=== PATIENT | male | born 1970 | race Caucasian/White ===

== ENCOUNTER 2022-01-26 23:46 | Inpatient (IN) | payer SELFPAY ==
[2022-01-26 23:50] VITALS: BMI 24.3
[2022-01-26 23:57] VITALS: BP 141/102; PULSE 112; RESP 15; O2SAT 85
[2022-01-27] VITALS (166 sets, daily range): BP systolic 59–141; BP diastolic 42–99; PULSE 0–112; RESP 13–25; TEMP 36.3–36.7; O2SAT 82–98
--- NOTE | 2022-01-27 00:06 | XRR_ITS ---
PROCEDURE INFORMATION: Exam: XR Chest Exam date and time: 01/27/2022 12:00 AM Age: 51 years old Clinical indication: Other: Cpr/code TECHNIQUE: Imaging protocol: Radiologic exam of the chest. Views: 1 view. COMPARISON: No relevant prior studies available. FINDINGS: Tubes, catheters and devices: NG tube is looped in the distal esophagus. The endotracheal tube tip lies just above zayra. Lungs: Extensive ground-glass opacity throughout both lungs. Pleural spaces: Suspect trace left pneumothorax projecting over the lateral costophrenic sulcus. Heart/Mediastinum: Unremarkable. No cardiomegaly. Bones/joints: Suspect left anterior lower rib fractures. Soft tissues: Soft tissue gas in the left chest wall. XR/XR chest 1V portable [id number] IMPRESSION: 1. Probable trace left pneumothorax. 2. NG tube is looped in the distal esophagus and should be repositioned. 3. Endotracheal tube tip lies just above the zayra. 4. Soft tissue gas in the left chest wall. 5. Marked bilateral pulmonary ground-glass opacity. Possible pulmonary edema, hemorrhage, or acute lung injury.
--- NOTE | 2022-01-27 00:06 | ECG_ITS ---
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 Measurements Intervals [place] Rate: 111 P: 160 [place]: 173 QRS: 79 QRSD: 152 T: -60 QT: 394 QTc: 536 Interpretive Statements SINUS TACHYCARDIA MARKED ST ELEVATION, CONSIDER ANTEROLATERAL INJURY [MARKED ST ELEVATION W/O NORMALLY INFLECTED T-WAVE IN V3-V6] ACUTE CO No previous ECG available for comparison Electronically Signed On 01-27-2022 21:35:33 CDT by Ashley Herrera M.D. [email or web address]
[2022-01-27 00:13] LABS: Arterial Blood Gas Hematocrit 39.9 % (42-52); Base Excess ABG -19.2 mmol/L (-2.0-2.0); Blood Gas Allen Test Pos; Blood Gas Sample Site Radial, left; Blood Gas Sample Type Arterial; HCO3 ABG 14.7 mmol/L (22-26); Oxygen Device VENT; PO2 ABG 62.5 mmHg (80.0-100.0)
[2022-01-27 00:35] LABS: Alcohol Level 170 mg/dL (0-10); Blood Urea Nitrogen 8 mg/dL (6-20); Calcium 7.8 mg/dL (8.5-10.5); Carbon Dioxide 15 mmol/L (22-29); Chloride 102 mmol/L (98-107); Creatine Phosphokinase 230 U/L (39-308); Glomerular Filtration Rate 78.2 mL/min (90-130); Glucose 222 mg/dL (65-115); Magnesium 2.7 mg/dL (1.7-2.3); NT Pro B Type Natriuretic Pept 296 pg/mL (0-125); Osmolality Calculated 291 mOsm/kg (285-295); Sodium 138 mmol/L (136-145)
[2022-01-27 00:37] LABS: Anion Gap 24.9 (5-19); Basophils # 0.1 10^3/uL (0.0-0.1); Basophils % 0.5 %; Eosinophils # 0.2 10^3/uL (0.0-0.8); Eosinophils % 1.5 %; Hematocrit 43.7 % (42.0-52.0); Lymphocytes # 7.1 10^3/uL (0.8-4.8); Lymphocytes % 52.1 %; Mean Corpuscular Hemoglobin 32.4 pg (28.0-34.0); Mean Corpuscular Volume 101.2 fl (80-94); Mean Platelet Volume 11.8 fL (7.4-10.4); Monocytes # 0.4 10^3/uL (0.2-0.9); Neutrophils # 4.87 10^3/uL (1.8-7.7); Nucleated Red Blood Cells # 0.1 /100WBC; Nucleated Red Blood Cells % 0.4 %; Platelet Count 84 10^3/cmm (130-400); Potassium 3.9 mmol/L (3.5-5.1); Red Blood Count 4.32 10^6/uL (4.1-5.3); Red Cell Distribution Width 12.8 % (12.1-15.1); Troponin(5th) Baseline 133 ng/L (0-15); White Blood Count 13.6 10^3/uL (4.0-10.0)
[2022-01-27] MEDS: potassium chloride premix 100 ML 50 MEQ IV (00:37)
[2022-01-27] MEDS: EPINEPHrine 2.5 MG in sodium chloride 0.9% 250 ML 60 MG IV ×4 (00:53→13:49)
[2022-01-27 00:55] LABS: Slide Review Slide Review Perform
--- NOTE | 2022-01-27 00:56 | PM.CONSULT ---
Providers/Reason For Consult Consulting Physician/Specialty*: Shawn Mendoza MD/Cardiology Reason for Consult*: Cardiac arrest Requesting Physician: Dr De Oliveira History of Present Illness History of Present Illness Ben Davepnort is a 51 year old male with no known prior cardiac history who was brought by EMS after he had V. fib arrest. According to patient's family he went to bed and woke up around 1030 tonight with complaints of something stuck in the throat. Also had heartburn sensation and asked for Tums. He was not feeling well for the last few days. His girlfriend went out and after about 10 to 15 minutes came back and found him down on the floor unresponsive. She called EMS and started CPR. Per EMS report there was V. fib arrest that converted into PEA later. He was brought to the ER in PEA. Initial CPR duration was about 50 minutes. Cardiology was called and I evaluated patient emergently. Post CPR EKG showed sinus tachycardia with significant conduction delay. ST T wave changes were consistent with postcardiac arrest EKG. Given his age, we initially decided to take him to cardiac Technical Advisor after discussion with the family. However he bradycardia down with concerns of asystole x2 and required CPR again. He had developed pneumothorax as well. His initial pH came back at 6.89. Initial troponin was 133 that trended up to 1187 at 2 hours. He was not on any sedation and had fixed pupils without corneal reflexes. I had a detailed discussion with patient's girlfriend that because of multiple prolonged CPR attempts, it will not be beneficial at this time to take him to cardiac Technical Advisor. They decided to stabilize him and manage him medically. Review of Systems General: Reports: ROS unobtainable due to endotracheal tube Medications/Allergies Home Medications Medication Instructions Recorded Confirmed Last Taken Type No Known Home Medications 01/27/22 01/27/22 Unknown History Allergies Allergy/AdvReac Type Severity Reaction Status Date / Time No Known Allergies Allergy Verified 01/27/22 00:37 Current Medications Generic Name Dose Route Start Last Admin Trade Name Freq PRN Reason Stop Dose Admin Potassium Chloride 100 mls @ 50 mls/hr 01/27/22 00:16 01/27/22 00:37 K-Blair Premix IV 01/27/22 02:15 50 mls/hr ONCE ONE Administration PFSH Acute PFSH: Medical History COVID-19 vaccine administered X2 doses No significant past medical history Surgical History History of tonsillectomy Possibly had tonsillectomy as a child Family History Mother Alcoholism Sister Stroke Denies family history of CAD (coronary artery disease) Social History Smoking and tobacco status: current every day smoker cigarettes [ Other cigarette details: Pack and a half a day] Alcohol intake: current Alcohol intake frequency: few times a week Substance/Drug Use: never Lives independently: Yes Household members: significant other Vitals/I&O/Wt Last Vital Signs Temp 98.0 F 01/27/22 00:42 Pulse 106 H 01/27/22 00:42 Resp 20 H 01/27/22 00:42 BP 107/78 01/27/22 00:42 Pulse Ox 98 01/27/22 00:42 Weight last 48 hrs Weight 160 lb Physical Exam Narrative: GENERAL: Patient is intubated. Unresponsive with fixed pupils HEART: Tachycardic LUNGS: Diminished breath sounds ABDOMEN: Soft CENTRAL NERVOUS SYSTEM: Patient is intubated EXTREMITIES: Cold lower extremities Urinary Catheter Management: Elias: Cath Placed During This Visit: yes Urinary Catheter Date of Insertion: 01/27/22 Urinary Catheter Time of Insertion: 00:16 Data : 01/27/22 07:04 01/27/22 07:04 A&P Assessment and plan (1) Cardiac arrest: Status: Acute (2) Iatrogenic pneumothorax: Status: Acute (3) Acute respiratory failure: Status: Acute Plan Patient has presented with [id number] cardiac arrest. Prolonged CPR attempts with combined total time significantly over an hour. No corneal reflexes seen. Fixed pupils. pH is significantly low. Situation was discussed with patient's girlfriend. She shows understanding and decided not to pursue aggressive measures including taking patient to cardiac Technical Advisor. Medically manage with dual antiplatelet therapy. Can put on cooling protocol Amiodarone gtt IV anticoagulation with heparin Order echocardiogram If patient starts showing signs of neurological recovery, we can consider coronary angiogram with possible percutaneous coronary intervention Thank you for involving us with care of this patient. We will continue to follow. Please call with questions. Consult Attestations Medical Necessity Statement: Care expected to cross 2 midnights. Coding Level of Care Code Acute Director Speech Language for Aurora Guajardo Diagnoses Cardiac arrest I46.9 Iatrogenic pneumothorax J95.811 Acute respiratory failure J96.00
--- NOTE | 2022-01-27 01:04 | XRR_ITS ---
PROCEDURE INFORMATION: Exam: XR Chest Exam date and time: 01/27/2022 1:26 AM Age: 51 years old Clinical indication: Other: Code; Additional info: Repeat post multiple codes, sub cut air TECHNIQUE: Imaging protocol: Radiologic exam of the chest. Views: 1 view. COMPARISON: CR XR chest 1V portable [id number] 01/27/2022 12:00 AM FINDINGS: Tubes, catheters and devices: The endotracheal tube is appropriately positioned in the distal thoracic trachea with the tip above the zayra. NG tube is been repositioned. The tip not imaged. The tube extends beyond the diaphragmatic hiatus. Lungs: There is severe diffuse bilateral pulmonary ground-glass opacity. Pleural spaces: Left apical pneumothorax is now visible. There is 12 mm displacement of the apical pleura from the chest wall. Heart/Mediastinum: Cardiomediastinal contours are unremarkable. Bones/joints: Probable left anterior 4th through 6th rib fractures. Soft tissues: Extensive chest wall gas bilaterally, markedly increased since the prior radiograph. XR/XR chest 1V portable [id number] IMPRESSION: 1. Increased size of left pneumothorax and increased volume of chest wall emphysema. 2. Suspect anterior left rib fractures. 3. Stable severe bilateral pulmonary opacity. 4. Satisfactory endotracheal tube position. 5. NG tube is been repositioned. The tip extends beyond the diaphragmatic hiatus. Tip not imaged.
[2022-01-27 01:06] LABS: INR 1.38 (0.8-1.2)
[2022-01-27 01:08] LABS: Partial Thromboplastin Time 52.6 SECONDS (23.9-36.7)
[2022-01-27 01:14] LABS: Lactate (Lactic Acid level) 12.9 mmol/L (0.5-2.2)
[2022-01-27 01:23] LABS: D Dimer >= 20.00 ug/mIFEU (0-0.59)
--- NOTE | 2022-01-27 02:06 | ECG_ITS ---
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 Measurements Intervals [place] Rate: 100 P: 59 [place]: 175 QRS: -26 QRSD: 104 T: 87 QT: 378 QTc: 488 Interpretive Statements SINUS TACHYCARDIA LOW QRS VOLTAGE [QRS DEFLECTION < 0.5/1.0 mV IN LIMB/CHEST LEADS] INFERIOR MYOCARDIAL INFARCTION , POSSIBLY ACUTE [40+ ms Q WAVE AND/OR ST/T ABNORMALITY IN II/aVF] ANTEROSEPTAL MYOCARDIAL INFARCTION , PROBABLY RECENT [40+ ms Q WAVE IN V1-V4] MARKED ST ELEVATION, CONSIDER LATERAL INJURY [MARKED ST ELEVATION W/O NORMALLY INFLECTED T-WAVE IN I/aVL/V5/V6] ACUTE SC No previous ECG available for comparison Electronically Signed On 01-27-2022 21:31:31 CDT by Ashley Herrera M.D. [email or web address]
--- NOTE | 2022-01-27 02:11 | XRR_ITS ---
PROCEDURE INFORMATION: Exam: XR Chest Exam date and time: 01/27/2022 2:28 AM Age: 51 years old Clinical indication: Device placement; Chest tube; Additional info: Post chest tube TECHNIQUE: Imaging protocol: Radiologic exam of the chest. Views: 1 view. COMPARISON: CR (CHEST, ) 01/27/2022 1:26 AM FINDINGS: Tubes, catheters and devices: Endotracheal tube approximately 4 cm above the zayra. Left-sided chest tube noted in place. An enteric tube is noted extending below the level of the diaphragm and out of the field of view. Lungs: Diffuse bilateral airspace opacities. Pleural spaces: Probable trace left apical pneumothorax. Heart/Mediastinum: The cardiomediastinal silhouette is within normal limits. Bones/joints: Questionable fracture in the lateral left 1st rib. Soft tissues: Extensive subcutaneous emphysema throughout chest and neck. XR/XR chest 1V portable [id number] IMPRESSION: 1. Left-sided chest tube in place. Probable trace left apical pneumothorax, improved compared to prior exam. 2. Extensive subcutaneous emphysema throughout chest and neck. 3. Diffuse bilateral airspace opacities. 4. Questionable fracture in the lateral left 1st rib.
--- NOTE | 2022-01-27 02:22 | PC.NURSE ---
@2343-pt arrived CPR in progress @2345 Rhythym check-PEA resumed CPR @2346 one amp EPI administered @2347 Rhythym check-PEA resumed CPR @2347 ET tube 25 at the lip @2349 one amp EPI administered/ one amp Bicarb administered @2350 one amp Bicarb administered @2351 10mg VECC administered/ 18g placed to L AC @2351 Rhythym check-PEA resumed CPR @2352 one amp EPI administered @2353 Rhythym check ROSC- Bundle @2358 EKG @0015 Elias placed @0015 1 amp Bicarb administered @0024 HR dropped from 110 to 70 then low 60's @0025 HR 38 CPR started @0026 one amp Bicarb/one amp EPI administered @0027 Rhythym check-PEA resumed CPR @0029 Rhythym check-PEA resumed CPR @0029 one amp EPI administered @0031 Rhythym check-ROSC- Block HR 108 @0032 Epi drip started @6mcg/min @0048 HR dropped to 48- CPR began @0049 one amp EPI administered @0050 Rhythym check-PEA resumed CPR @0052 one amp EPI administere @0053 Rhythym check-ROSC- Block- HR 101 @0053 titrate EPI drip to 10mcg/min @0119 HR dropped to 40- CPR began @0119 One amp EPI administered @0121 Rhythym check-PEA resumed CPR @0123 one amp EPI administered @0124 Rhythym check-ROSC- Block- HR 96 @0150 Needle decompression attempted to L chest @0155 L Chest tube placed
[2022-01-27] MEDS: sodium bicarbonate 8.4% 1 mEq/mL 50mL Syr 100 MEQ IVP (02:46)
[2022-01-27] MEDS: FUROsemide 10 mg/mL SDV 4mL 40 MG IVP (02:55)
[2022-01-27 02:58] LABS: Alveolar-Arterial Oxygen Gradi 78.1 mmHg (5-10); Arterial Blood Gas Hematocrit 44.1 % (42-52); Base Excess ABG -19.6 mmol/L (-2.0-2.0); Blood Gas Sample Site Radial, left; Blood Gas Sample Type Arterial; Carboxyhemoglobin 4.2 %THgb (0.4-20.1); HCO3 ABG 11.4 mmol/L (22-26); HGB O2 Sat 73.1 % (95-100); Ionized Calcium Level - ABG 1.1 mmol/L (1.1-1.4); Oxygen Device VENT; Oxygen Saturation ABG 77.1; PO2 ABG 59.2 mmHg (80.0-100.0); Potassium Level - ABG 2.9 mmol/L (3.5-5.0); Total Hemoglobin 14.4 g/dL (14-18)
[2022-01-27 03:41] LABS: Troponin 5 2HR 1187 ng/L (0-15); Troponin 5 2HR Delta 1054 ABS# (0-10)
[2022-01-27 04:21] LABS: Add Urine Culture? No; Add Urine Microscopic? YES; Amorphous Sediment Urine 4+ /hpf; Bacteria Urine 1+ /hpf; Bilirubin Urine Neg (Negative); Blood Urine 3+ (Negative); Glucose Urine UA 1+ (Normal); Ketones Urine Negative (Negative); Leukocyte Esterase Urine Negative (Negative); Nitrate Urine Negative (Negative); Protein Urine 2+ (Negative); RBC Urine 50-80 /hpf (0-2); Urine Appearance SL Hazy (CLEAR); Urine Color Other (Yellow); Urobilinogen Urine Norm (Negative); WBC Urine 55-80 /hpf (0-5); pH Urine 5 (5-7)
[2022-01-27 04:28] LABS: ABG PH Result 7.01 (7.35-7.45)
[2022-01-27 04:32] LABS: ABG PCO2 77.4 mmHg (35-45); ABG PH Result 6.89 (7.35-7.45)
--- NOTE | 2022-01-27 04:43 | PM.HP ---
Providers/Chief Complaint Admitting Physician: Danisha Crawford MD Primary Care Provider: None Chief Complaint: CPR History of Present Illness Ben Davenport is a 51 year old male who presented to the emergency room via EMS in cardiac arrest. Patient has no known medical history. This evening he went to bed. He got up maybe around 1030 or so. In the process he woke up his girlfriend of 14 years with whom he lives. He was telling her that it felt like something was caught in his throat and that he did not feel good. He was rubbing at his sternal area and grabbing at his neck. He said that he needed Tums. He did not look good . When she asked him if he was okay, he made the comment I will be fine or something along those lines. She took one of the dogs out to go to the bathroom or to eat and when she came back in just a couple minutes later, he was unresponsive on the floor. She called 911 and initiated CPR at approximately 1055. EMS arrived a short time later and continued CPR. In route patient received 300 mg of amiodarone, 5 mg of epinephrine and 1 mg of atropine. On arrival here he was in PEA. CPR was continued for another approximately 10 minutes and 3 doses of epi with return of spontaneous circulation. EKG showed evidence of ST elevation PA. Cardiology was consulted and saw Mr. Davenport, but unfortunately he had 3 more episodes of bradycardic arrest in the emergency room, receiving approximately 2 doses of epinephrine each time before subsequent return of spontaneous circulation. Noted to have left-sided pneumothorax and underwent needle decompression and left-sided chest tube placement. He has not required any sedation and has fixed pupils without evidence of corneal reflexes. Initial pH after the first 50 minutes of CPR was 6.89. Initial troponin was 133. 2-hour troponin 1187. Most recent pH continues to show significant acidosis with pH of 7.005. Patient is on 10 mg of epinephrine and has maintained perfusing rhythm now for couple of hours. Patient's girlfriend and closest [place] who are here. They participated in discussions with both emergency physician and cardiology regarding patient's poor candidacy for cardiac catheterization this evening and recommendations for medical management. They are also aware of overall low likelihood of survival after prolonged resuscitation and current findings. While they do not desire to have patient resuscitated further at this time, they are not at a place to consider withdrawal of care just yet. Patient is being admitted to the ICU for continued management and supportive care. History is obtained from patient's girlfriend of 14 years as well as his [place], both of whom are here. In talking with Mr. Hanson girlfriend, over the last couple of weeks, Mr. Sainz has been complaining of shortness of breath, particularly with exertion and needing his Tums much more frequently. He has complained of it being too hot or him eating too much as a cause of him not feeling well. This has been escalating over the last few weeks but attributed to other things. Mr. Davenport does not have a primary care provider. No known medical history. He has never been hospitalized. He might have had his tonsils out as a child but she is really not certain. He takes no medications. Nobody in the family that she knows of has heart problems though he does have a sister who had a stroke. Review of Systems General: Reports: ROS unobtainable due to endotracheal tube and ROS unobtainable due to medical condition Medications/Allergies Home Medications Medication Instructions Recorded Confirmed Last Taken Type No Known Home Medications 01/27/22 01/27/22 Unknown History Allergies Allergy/AdvReac Type Severity Reaction Status Date / Time No Known Allergies Allergy Verified 01/27/22 00:37 PFSH Acute PFSH: Medical History (Updated 01/27/22 @ 05:48 by Danisha Crawford MD) COVID-19 vaccine administered X2 doses No significant past medical history Surgical History (Updated 01/27/22 @ 05:12 by Danisha Crawford MD) History of tonsillectomy Possibly had tonsillectomy as a child Family History (Updated 01/27/22 @ 05:12 by Danisha Crawford MD) Mother Alcoholism Sister Stroke Denies family history of CAD (coronary artery disease) Social History (Updated 01/27/22 @ 05:13 by Danisha Crawford MD) Smoking and tobacco status: current every day smoker cigarettes [ Other cigarette details: Pack and a half a day] Alcohol intake: current Alcohol intake frequency: few times a week Substance/Drug Use: never Lives independently: Yes Household members: significant other Vitals/I&O/Wt Last Vital Signs Temp 98.0 F 01/27/22 00:42 Pulse 107 H 01/27/22 04:14 Resp 14 01/27/22 04:14 BP 141/99 01/27/22 04:14 Pulse Ox 97 01/27/22 04:14 01/26/22 01/26/22 01/27/22 14:59 22:59 06:59 Intake Total 100 / 100 Balance 100 / 100 Weight last 48 hrs Weight 72.575 kg Physical Exam Narrative: Constitutional: Intubated, on ventilator, no sedation on board, not responsive HEENT: Facial edema noted, pupils are fixed and dilated, no corneal reflex appreciated, no gag reflex, OG and ET tube are intact, some dried blood around mouth from airway per staff Neck: Supple Respiratory: Coarse breath sounds throughout but equal bilaterally, chest tube intact to left chest, mild crepitus left lower rib cage and upper abdomen Cardiovascular: Tachycardic regular rhythm, distant heart sounds, 2+ central pulses, 1+ radial pulses, faint dorsalis pedis pulses with mottling noted to the feet Abdomen: Soft, no bowel sounds, nondistended : Normal external genitalia with Elias catheter in place, small amount of pink-tinged urine Extremities: Cool, no pitting edema, mottled at the feet Skin: Dry, scattered minor sores and iatrogenic findings from resuscitative efforts this evening Neuro: No spontaneous movements or withdrawal to stimuli, not on any sedation Urinary Catheter Management: Elias: Cath Placed During This Visit: yes Urinary Catheter Date of Insertion: 01/27/22 Urinary Catheter Time of Insertion: 00:16 Data : 01/26/22 23:55 01/26/22 23:55 Other Labs: Radiology Impressions Chest X-Ray 01/27/22 02:11 IMPRESSION: 1. Left-sided chest tube in place. Probable trace left apical pneumothorax, improved compared to prior exam. 2. Extensive subcutaneous emphysema throughout chest and neck. 3. Diffuse bilateral airspace opacities. 4. Questionable fracture in the lateral left 1st rib. Laboratory Results WBC 13.6 10^3/uL (4.0-10.0) H 01/26/22 23:55 RBC 4.32 10^6/uL (4.1-5.3) 01/26/22 23:55 Hgb 14.0 g/dL (11.7-16.6) 01/26/22 23:55 Hct 43.7 % (42.0-52.0) 01/26/22 23:55 MCV 101.2 fl (80-94) H 01/26/22 23:55 MCH 32.4 pg (28.0-34.0) 01/26/22 23:55 MCHC 32.0 g/dL (30.0-36.0) 01/26/22 23:55 RDW 12.8 % (12.1-15.1) 01/26/22 23:55 Plt Count 84 10^3/cmm (130-400) L 01/26/22 23:55 MPV 11.8 fL (7.4-10.4) H 01/26/22 23:55 Neut % (Auto) 36.0 % 01/26/22 23:55 Lymph % (Auto) 52.1 % 01/26/22 23:55 [place] % (Auto) 3.0 % 01/26/22 23:55 Eos % (Auto) 1.5 % 01/26/22 23:55 Baso % (Auto) 0.5 % 01/26/22 23:55 Neut # (Auto) 4.87 10^3/uL (1.8-7.7) 01/26/22 23:55 Lymph # (Auto) 7.1 10^3/uL (0.8-4.8) H 01/26/22 23:55 [place] # (Auto) 0.4 10^3/uL (0.2-0.9) 01/26/22 23:55 Eos # (Auto) 0.2 10^3/uL (0.0-0.8) 01/26/22 23:55 Baso # (Auto) 0.1 10^3/uL (0.0-0.1) 01/26/22 23:55 Nucleated RBC % (auto) 0.4 % 01/26/22 23:55 Nucleated RBCs # 0.1 /100WBC 01/26/22 23:55 PT 17.20 SECONDS (12.1-14.9) H 01/27/22 00:40 INR 1.38 (0.8-1.2) H 01/27/22 00:40 APTT 52.6 SECONDS (23.9-36.7) H 01/27/22 00:40 D-Dimer >= 20.00 ug/mIFEU (0-0.59) H 01/27/22 00:40 Specimen Type Arterial 01/27/22 00:06 Sample Site Radial, left 01/27/22 00:06 ABG pH 7.01 (7.35-7.45) L* 01/27/22 00:06 ABG pCO2 46.0 mmHg (35-45) H 01/27/22 00:06 ABG pO2 59.2 mmHg (80.0-100.0) L 01/27/22 00:06 ABG HCO3 11.4 mmol/L (22-26) L 01/27/22 00:06 ABG O2 Saturation 77.1 01/27/22 00:06 ABG Base Excess -19.6 mmol/L (-2.0-2.0) L 01/27/22 00:06 Armando Test N/a 01/27/22 00:06 A-a O2 Gradient 78.1 mmHg (5-10) H 01/27/22 00:06 Hematocrit 44.1 % (42-52) 01/27/22 00:06 Hgb O2 Saturation 73.1 % (95-100) L 01/27/22 00:06 Carboxyhemoglobin 4.2 %THgb (0.4-20.1) 01/27/22 00:06 Methemoglobin 1.0 % (0.4-1.5) 01/27/22 00:06 Total Hemoglobin 14.4 g/dL (14-18) 01/27/22 00:06 Sodium 146.0 mmol/L (131-143) H 01/27/22 00:06 Potassium 2.9 mmol/L (3.5-5.0) L 01/27/22 00:06 Glucose 173.0 mg/dL (70-115) H 01/27/22 00:06 Ionized Calcium 1.1 mmol/L (1.1-1.4) 01/27/22 00:06 O2 Delivery Device Vent 01/27/22 00:06 FiO2 100.0 % 01/27/22 00:06 PEEP 8.0 cmH20 01/27/22 00:06 Railroad Repairer ID [place] 01/27/22 00:06 Sodium 138 mmol/L (136-145) 01/26/22 23:55 Potassium 3.9 mmol/L (3.5-5.1) 01/26/22 23:55 Chloride 102 mmol/L (98-107) 01/26/22 23:55 Carbon Dioxide 15 mmol/L (22-29) L 01/26/22 23:55 Anion Gap 24.9 (5-19) H 01/26/22 23:55 BUN 8 mg/dL (6-20) 01/26/22 23:55 Creatinine 1.0 mg/dL (0.7-1.2) 01/26/22 23:55 GFR Calculation 78.2 mL/min (90-130) L 01/26/22 23:55 Glucose 222 mg/dL (65-115) H 01/26/22 23:55 Calculated Osmolality 291 mOsm/kg (285-295) 01/26/22 23:55 Lactate 12.9 mmol/L (0.5-2.2) H* 01/27/22 00:40 Calcium 7.8 mg/dL (8.5-10.5) L 01/26/22 23:55 Magnesium 2.7 mg/dL (1.7-2.3) H 01/26/22 23:55 Creatine Kinase 230 U/L (39-308) 01/26/22 23:55 Troponin T Baseline 133 ng/L (0-15) H* 01/26/22 23:55 Troponin T 120 Minute 1187 ng/L (0-15) H 01/27/22 03:05 Delta Troponin T 1054 ABS# (0-10) H* 01/27/22 03:05 NT-Pro-B Natriuret Pep 296 pg/mL (0-125) H 01/26/22 23:55 Urine Color Other (Yellow) 01/27/22 03:55 Urine Appearance Sl hazy (CLEAR) 01/27/22 03:55 Urine pH 5 (5-7) 01/27/22 03:55 Ur Specific [place] 1.010 (1.005-1.030) 01/27/22 03:55 Urine Protein 2+ (Negative) H 01/27/22 03:55 Urine Glucose (UA) 1+ (Normal) H 01/27/22 03:55 Urine Ketones Negative (Negative) 01/27/22 03:55 Urine Blood 3+ (Negative) H 01/27/22 03:55 Urine Nitrate Negative (Negative) 01/27/22 03:55 Urine Bilirubin Neg (Negative) 01/27/22 03:55 Urine Urobilinogen Norm mg/dL (Negative) 01/27/22 03:55 Ur Leukocyte Esterase Negative (Negative) 01/27/22 03:55 Urine RBC 50-80 /hpf (0-2) H 01/27/22 03:55 Urine WBC 55-80 /hpf (0-5) H 01/27/22 03:55 Ur Squamous Epith Cells 10-15 /hpf (0-5) H 01/27/22 03:55 Amorphous Sediment 4+ /hpf 01/27/22 03:55 Urine Bacteria 1+ /hpf (NONE) H 01/27/22 03:55 Ethyl Alcohol 170 mg/dL (0-10) H 01/26/22 23:55 Coronavirus 229E (PCR) Not detected (NOT DETECT) 01/27/22 02:19 SARS-CoV-2 (PCR) Detected (NOT DETECT) A 01/27/22 02:19 A&P Assessment and plan (1) Cardiac arrest: At home with with girlfriend initiating CPR within a couple of minutes. Had undergone 50 minutes of CPR prior to arrival in the emergency room. CPR was continued upon arrival and approximately 10 minutes later return of spontaneous circulation was obtained. Initial rhythm here was PEA. Patient had 3 or 4 subsequent bradycardic arrest lasting several minutes again with return of spontaneous circulation. Last return of spontaneous circulation was around 2 AM on January 27. Patient received a total of approximately 12 doses of epinephrine, 2 doses of atropine, several doses of bicarb. He has not required defibrillation thus far Status: Acute (2) ST elevation PA (STEMI): Initial EKG here with ST elevation in anterior lateral leads. History obtained from patient's live-in girlfriend is strongly suggestive of a pattern of unstable angina and acute PA this evening. No personal history of coronary artery disease nor no known medical problems classically associated with such or family history however patient does smoke. Too unstable for cardiac catheterization. Status: Acute (3) Acute respiratory failure: Secondary to cardiac arrest, currently intubated Status: Acute (4) Anoxic brain injury: Secondary to above. Currently no evidence of pupillary, corneal or gag reflex. Not yet showing signs of myoclonus or other involuntary movements. Status: Acute (5) Iatrogenic pneumothorax: Secondary to multiple rib fractures from CPR, status post chest tube placement in the emergency room Status: Acute (6) COVID-19: Acute diagnosis although patient did not present obvious symptoms. Patient's girlfriend with whom he lives had symptoms and tested positive this past Thursday. Mr. Davenport was vaccinated with 2 COVID-19 doses. Status: Acute Plan Multiorgan failure secondary to cardiopulmonary arrest beyond what is described above including leukocytosis, thrombocytopenia, coagulopathy, elevated D-dimer, severe metabolic acidosis with lactic acidosis, hyperglycemia. Anticipate patient with early renal failure given lack of urine output and liver failure Nicotine dependence with cigarettes, longstanding Elevated blood alcohol level, not a daily drinker per girlfriend Inpatient admission ICU level care Continue current ventilatory support As needed intermittent fentanyl and Versed although has thus far not required any sedation beyond initial medicines utilized for intubation shortly after arrival to the ER Continue epinephrine drip at current rate CT aspirin Lovenox currently although we will have to watch for further bleeding as well as monitor platelet count Will put on dexamethasone Given suspected significant renal failure and liver failure from acute events combined with poor prognosis for non-COVID reasons, I have not initiated remdesivir Will cover empirically with Zosyn and 1 dose of vancomycin Blood cultures Status post 1 dose of Lasix and potassium in the emergency room after initial chest x-ray was visualized Elias catheter for close monitoring of urine output Serial neuro exams Maintain chest tube to waterseal currently Gastric tube management PPI SCDs Allow natural as per discussion with patient's live-in girlfriend and close friend who are both here. Patient has undergone may be 75 minutes of CPR in total this evening. While we have achieved return of spontaneous circulation, current examination and laboratory findings along with present support are consistent with limited likelihood of survival and no chance of return to similar quality of life as he experienced just yesterday. With this understanding we are continuing current level of care monitorin and updating for any change in prognosis Attestations Medical Necessity Statement*: Anticipated stay greater than two midnights if patient survives this long given critical nature of current condition. 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
[2022-01-27 05:06] LABS: Adenovirus Not Detected (NOT DETECT); Chlamydia Pneumoniae Not Detected (NOT DETECT); Coronavirus 229E,HKU1,NL63,OC4 Not Detected (NOT DETECT); Human Metapneumovirus Not Detected (NOT DETECT); Human Rhinovirus/Enterovirus Not Detected (NOT DETECT); Influenza A Not Detected (NOT DETECT); Influenza A H1 Not Detected (NOT DETECT); Influenza A H1-2009 Not Detected (NOT DETECT); Influenza A H3 Not Detected (NOT DETECT); Influenza B Not Detected (NOT DETECT); Mycoplasma Pneumoniae Not Detected (NOT DETECT); Parainfluenza Virus Type 1 Not Detected (NOT DETECT); Parainfluenza Virus Type 2 Not Detected (NOT DETECT); Parainfluenza Virus Type 3 Not Detected (NOT DETECT); Parainfluenza Virus Type 4 Not Detected (NOT DETECT); Respiratory Syncytial Virus A Not Detected (NOT DETECT); Respiratory Syncytial Virus B Not Detected (NOT DETECT); SARS-COV-2 Detected (NOT DETECT)
--- NOTE | 2022-01-27 05:33 | W.ED.CPR ---
HPI - CPR General: Chief Complaint: Cardiac Arrest/CPR Stated Complaint: CPR Time Seen by Provider: 01/27/22 00:05 Source: family and EMS History of Present Illness: 51-year-old male presenting unresponsive with CPR in progress. History is taken from his longtime girlfriend who found the patient down. She notes that the patient had not been feeling well. He had gone to bed and gotten up complaining of indigestion and pain radiating up into his throat. She asked him to call the ambulance, but he would not, stating that he was fine and just needed some tums . She took her dogs out, and on return, found him down in the bathroom. CPR was started within 5 minutes according to EMS. ACLS protocol was followed. Initial rhythm was evidently ventricular fibrillation, which was cardioverted. By the time he had arrived to our emergency department, the patient had received 3 mg of epinephrine, 300 mg of amiodarone, chest compressions, and Igel LMA placement for an airway. Did briefly gotten a pulse, but was severely bradycardic in route, so CPR was continued. On arrival, he is in PEA. Of note the patient's girlfriend was diagnosed with COVID a week ago. complaint: found unresponsive and stopped breathing Onset (ago): minute(s) (50) Timing confirmed by: other Place: home Bystander CPR performed: Yes Shock advised: Yes Initial findings in the field: unresponsive, no pulse and VTACH/VFIB ROSC in the field: No Associated injuries: No Associated symptoms: chest pain Known history of: other (No prior history) Treatments prior to arrival: other airway device, chest compressions, defibrillated shocks #, epinephrine mgs # (3), atropine mgs # (1) and amiodarone (300) Review of Systems General: Reports: ROS unobtainable due to medical condition Const: Denies: fever(s) Card: Reports: chest pain GI: Reports: abdominal pain and nausea [facility] PFSH: Medical History COVID-19 vaccine administered X2 doses No significant past medical history Surgical History (Updated 01/27/22 @ 05:12 by Danisha Crawford MD) History of tonsillectomy Possibly had tonsillectomy as a child Family History (Updated 01/27/22 @ 05:12 by Danisha Crawford MD) Mother Alcoholism Sister Stroke Denies family history of CAD (coronary artery disease) Social History Smoking and tobacco status: current every day smoker cigarettes [ Other cigarette details: Pack and a half a day] Alcohol intake: current Alcohol intake frequency: few times a week Substance/Drug Use: never Lives independently: Yes Household members: significant other Physical Exam Const: GENERAL APPEARANCE: Limp noted ORIENTATION/CONSCIOUSNESS: Yes Other orientation findings (Unresponsive) HENMT: COMMON NORMALS: normocephalic and Normal external nose present HEAD & SCALP: normocephalic NOSE: Normal external nose present THROAT: posterior oropharynx abnormal (Bleeding present) Eye: OTHER: Very sluggish and minimal pupillary response Neck/C-Spine: GENERAL: Yes trachea midline Chest: CHEST: Yes Symmetrical chest wall rise Resp: AUSCULTATION: rales Cardio: RATE: Other (No pulse) Procedures Central Line Placement Left Femoral: Time Out Performed: No Patient Placed on Monitor/Pulse Ox: Yes MD Prep: mask, gown and gloves Central Line Prep: Chlorhexidine scrub and sterile drapes applied Local Anesthetic: lidocaine 1% Amount of anesthesia used (mL): 3 Ultrasound Used for Placement: Yes Central Line Lumen Inserted: triple Post Procedure: sutured in place, good blood return, all ports aspirated, flushed, capped and sterile dressing applied Post Procedure X-Ray: other Patient Tolerated Procedure: well and no complications Intubation Time out performed: No sedative: none Laryngoscope: Erasmo (4) ET Tube Size: 8 ET Tube Uncuffed: No Tube Secured Depth (cm): 25 Tube Secured Location: lips Tube Placement Confirmation: visualized tube passing through cords, equal breath sounds bilaterally and confirmation by capnometry Patient Tolerated Procedure: no complications Intubation Complications: none Course Vital Signs: Vital signs: Vital Signs Temperature 98.0 F 01/27/22 00:42 Pulse Rate 106 H 01/27/22 05:37 Respiratory Rate 22 H 01/27/22 05:37 Blood Pressure 120/87 01/27/22 05:37 Pulse Oximetry 98 01/27/22 05:37 MDM - Cardiac Arrest/CPR Medical Decision Making This patient arrived unresponsive, CPR in progress. PEA was on the monitor. He had received 3 mg of epinephrine as well as 1 mg of atropine in the field. Chest compressions were continued, advanced airway was placed after removal of Igel airway without any complication. ET tube was secured. This was done without interruption of CPR. After several rounds of epinephrine for PEA, ROSC was achieved. Initial blood gas showed a pH of 6.88. 2 A of bicarb had been given during the code. He received 2 L of fluid as well. Chest x-ray initially showed pulmonary edema with likely rib fractures. Patient was hooked up to the vent. EKG post ROSC was concerning for a large left bundle branch block with ST changes. EKG was sent to cardiology immediately and they were consulted. He came in to evaluate the patient. The concern was a V. fib arrest in a young patient with no history. He elected to take the patient to the [facility], however we lost pulses again, this for the third time before the patient could be taken to the [facility]. At this point, cardiology deemed emergent cath did not be necessary given the prolonged downtime and instability of the patient at this point. Epinephrine drip had been started, and was increased to 10 mcg/min, max dose. This is held the patient in a sustainable sinus rhythm with large left bundle branch block. His vitals are 116/88, sinus tachycardia at 100, saturations were 94% on 100% through the ET tube on the ventilator. By the end of the series of codes the patient had, he had no corneal reflex, no gag reflex, and pupils were fixed and dilated. The family had been counseled through this process, and were made aware early on of the dire prognosis of the patient. After pulses were lost the last time, the patient's life partner elected to make the patient a DO NOT RESUSCITATE patient. However, she wanted everything done but CPR and chest compressions. Chest x-ray was repeated, and worsening pneumothorax on the left was noted. This was performed due to significant subcutaneous emphysema development on the left side. Needle decompression was attempted, followed by chest tube placement that was successful. Central line was placed in the right groin for access. He will go to the ICU. Of note, the patient's was positive for COVID last week. He was tested in the ER, and found to be positive by PCR. Both cardiology and the hospitalist have seen the patient in the ER, and admission orders have been written. Lab Data : 01/26/22 23:55 01/26/22 23:55 Radiology Impressions Chest X-Ray 01/27/22 02:11 IMPRESSION: 1. Left-sided chest tube in place. Probable trace left apical pneumothorax, improved compared to prior exam. 2. Extensive subcutaneous emphysema throughout chest and neck. 3. Diffuse bilateral airspace opacities. 4. Questionable fracture in the lateral left 1st rib. Laboratory Results WBC 13.6 10^3/uL (4.0-10.0) H 01/26/22 23:55 RBC 4.32 10^6/uL (4.1-5.3) 01/26/22 23:55 Hgb 14.0 g/dL (11.7-16.6) 01/26/22 23:55 Hct 43.7 % (42.0-52.0) 01/26/22 23:55 MCV 101.2 fl (80-94) H 01/26/22 23:55 MCH 32.4 pg (28.0-34.0) 01/26/22 23:55 MCHC 32.0 g/dL (30.0-36.0) 01/26/22 23:55 RDW 12.8 % (12.1-15.1) 01/26/22 23:55 Plt Count 84 10^3/cmm (130-400) L 01/26/22 23:55 MPV 11.8 fL (7.4-10.4) H 01/26/22 23:55 Neut % (Auto) 36.0 % 01/26/22 23:55 Lymph % (Auto) 52.1 % 01/26/22 23:55 Amelia % (Auto) 3.0 % 01/26/22 23:55 Eos % (Auto) 1.5 % 01/26/22 23:55 Baso % (Auto) 0.5 % 01/26/22 23:55 Neut # (Auto) 4.87 10^3/uL (1.8-7.7) 01/26/22 23:55 Lymph # (Auto) 7.1 10^3/uL (0.8-4.8) H 01/26/22 23:55 Amelia # (Auto) 0.4 10^3/uL (0.2-0.9) 01/26/22 23:55 Eos # (Auto) 0.2 10^3/uL (0.0-0.8) 01/26/22 23:55 Baso # (Auto) 0.1 10^3/uL (0.0-0.1) 01/26/22 23:55 Nucleated RBC % (auto) 0.4 % 01/26/22 23:55 Nucleated RBCs # 0.1 /100WBC 01/26/22 23:55 PT 17.20 SECONDS (12.1-14.9) H 01/27/22 00:40 INR 1.38 (0.8-1.2) H 01/27/22 00:40 APTT 52.6 SECONDS (23.9-36.7) H 01/27/22 00:40 D-Dimer >= 20.00 ug/mIFEU (0-0.59) H 01/27/22 00:40 Specimen Type Arterial 01/27/22 00:06 Sample Site Radial, left 01/27/22 00:06 ABG pH 7.01 (7.35-7.45) L* 01/27/22 00:06 ABG pCO2 46.0 mmHg (35-45) H 01/27/22 00:06 ABG pO2 59.2 mmHg (80.0-100.0) L 01/27/22 00:06 ABG HCO3 11.4 mmol/L (22-26) L 01/27/22 00:06 ABG O2 Saturation 77.1 01/27/22 00:06 ABG Base Excess -19.6 mmol/L (-2.0-2.0) L 01/27/22 00:06 Armando Test N/a 01/27/22 00:06 A-a O2 Gradient 78.1 mmHg (5-10) H 01/27/22 00:06 Hematocrit 44.1 % (42-52) 01/27/22 00:06 Hgb O2 Saturation 73.1 % (95-100) L 01/27/22 00:06 Carboxyhemoglobin 4.2 %THgb (0.4-20.1) 01/27/22 00:06 Methemoglobin 1.0 % (0.4-1.5) 01/27/22 00:06 Total Hemoglobin 14.4 g/dL (14-18) 01/27/22 00:06 Sodium 146.0 mmol/L (131-143) H 01/27/22 00:06 Potassium 2.9 mmol/L (3.5-5.0) L 01/27/22 00:06 Glucose 173.0 mg/dL (70-115) H 01/27/22 00:06 Ionized Calcium 1.1 mmol/L (1.1-1.4) 01/27/22 00:06 O2 Delivery Device Vent 01/27/22 00:06 FiO2 100.0 % 01/27/22 00:06 PEEP 8.0 cmH20 01/27/22 00:06 Medical Artist ID Hensa 01/27/22 00:06 Sodium 138 mmol/L (136-145) 01/26/22 23:55 Potassium 3.9 mmol/L (3.5-5.1) 01/26/22 23:55 Chloride 102 mmol/L (98-107) 01/26/22 23:55 Carbon Dioxide 15 mmol/L (22-29) L 01/26/22 23:55 Anion Gap 24.9 (5-19) H 01/26/22 23:55 BUN 8 mg/dL (6-20) 01/26/22 23:55 Creatinine 1.0 mg/dL (0.7-1.2) 01/26/22 23:55 GFR Calculation 78.2 mL/min (90-130) L 01/26/22 23:55 Glucose 222 mg/dL (65-115) H 01/26/22 23:55 Calculated Osmolality 291 mOsm/kg (285-295) 01/26/22 23:55 Lactate 12.9 mmol/L (0.5-2.2) H* 01/27/22 00:40 Calcium 7.8 mg/dL (8.5-10.5) L 01/26/22 23:55 Magnesium 2.7 mg/dL (1.7-2.3) H 01/26/22 23:55 Creatine Kinase 230 U/L (39-308) 01/26/22 23:55 Troponin T Baseline 133 ng/L (0-15) H* 01/26/22 23:55 Troponin T 120 Minute 1187 ng/L (0-15) H 01/27/22 03:05 Delta Troponin T 1054 ABS# (0-10) H* 01/27/22 03:05 NT-Pro-B Natriuret Pep 296 pg/mL (0-125) H 01/26/22 23:55 Urine Color Other (Yellow) 01/27/22 03:55 Urine Appearance Sl hazy (CLEAR) 01/27/22 03:55 Urine pH 5 (5-7) 01/27/22 03:55 Ur Specific [place] 1.010 (1.005-1.030) 01/27/22 03:55 Urine Protein 2+ (Negative) H 01/27/22 03:55 Urine Glucose (UA) 1+ (Normal) H 01/27/22 03:55 Urine Ketones Negative (Negative) 01/27/22 03:55 Urine Blood 3+ (Negative) H 01/27/22 03:55 Urine Nitrate Negative (Negative) 01/27/22 03:55 Urine Bilirubin Neg (Negative) 01/27/22 03:55 Urine Urobilinogen Norm mg/dL (Negative) 01/27/22 03:55 Ur Leukocyte Esterase Negative (Negative) 01/27/22 03:55 Urine RBC 50-80 /hpf (0-2) H 01/27/22 03:55 Urine WBC 55-80 /hpf (0-5) H 01/27/22 03:55 Ur Squamous Epith Cells 10-15 /hpf (0-5) H 01/27/22 03:55 Amorphous Sediment 4+ /hpf 01/27/22 03:55 Urine Bacteria 1+ /hpf (NONE) H 01/27/22 03:55 Ethyl Alcohol 170 mg/dL (0-10) H 01/26/22 23:55 Coronavirus 229E (PCR) Not detected (NOT DETECT) 01/27/22 02:19 SARS-CoV-2 (PCR) Detected (NOT DETECT) A 01/27/22 02:19 Critical Care Time Critical Care Time: Critical Care Time: Yes Total Critical Care Time: 90 Attestation: This case had a high probability of a clinically significant, sudden, or life threatening deterioration of this patient's condition which required my full and direct attention, intervention and personal management. Time is independent of any procedures performed including intubation and central line placement. Discharge Plan Discharge Patient Disposition: Admitted As Inpatient Admit Provider: Danisha Crawford Clinical Impression: Acute respiratory failure, ST elevation NE (STEMI), Cardiac arrest, Iatrogenic pneumothorax, COVID-19 Condition: Critical Coding Level of Care Code ED Optimization Engineer for Chg Fwd Exam Detailed
--- NOTE | 2022-01-27 05:39 | USCV_ITS ---
Bottom, Ben Age: 51 Gender: M : 1970 Exam Date: 01/27/2022 07:28 Ordering Phys: Danisha Crawford MD Technologist: Yoel Andre [place]am Location[place] [facility] [place]: Cardiac arrest BP: 123 / 88 HR: Rhythm: Sinus Technical Quality: Technically difficult study MEASUREMENTS (Male / Female) Normal Values 2D ECHO LV Ejection Fraction MOD 2C 38.0 % LV Ejection Fraction 2C AL 36.9 % DOPPLER AV Peak Velocity 104.0 cm/s LVOT Peak Velocity 72.0 cm/s MV Area PHT 5.0 cm squared Mitral E to A Ratio 1.7 MV E' Velocity 46.5 cm/s Mitral E to MV E' Ratio 27.9 Mitral E to LV E' Lateral Ratio 25.5 Mitral E to LV E' Septal Ratio 30.8 TR Peak Velocity 105.0 cm/s TR Peak Gradient 4.4 mmHg TV Peak E Velocity 68.0 cm/s Right Atrial Pressure 3.0 mmHg Pulmonary Artery Systolic Pressu 7.4 mmHg FINDINGS Left Ventricle Severely decreased left ventricular systolic function. Left ventricular ejection fraction is estimated at 20 %. Severe global hypokinesis more pronounced in mid inferoseptal, mid anteroseptal, apical septal, entire inferior and apical [place]. Grade II diastolic dysfunction, moderately elevated filling pressures. Right Ventricle Normal right ventricular size and systolic function. Right Atrium Normal right atrial size. Left Atrium Normal left atrial size. Mitral Valve Structurally normal mitral valve. No mitral valve regurgitation. Aortic Valve Aortic valve not well visualized. No aortic valve stenosis. Tricuspid Valve Tricuspid valve not well visualized. Pulmonic Valve Pulmonic valve not well visualized. Pericardium No pericardial effusion. Aorta Aorta not well visualized. IVC Inferior vena cava not visualized. CONCLUSIONS 1. This is a technically difficult and limited study postcardiac arrest. 2. Severely decreased left ventricular systolic function. Left ventricular ejection fraction is estimated at 20 %. Severe global hypokinesis more pronounced in mid inferoseptal, mid anteroseptal, apical septal, entire inferior and apical prescott. Grade II diastolic dysfunction, moderately elevated filling pressures. Ashley Herrera MD (Electronically Signed) Final Date: 27 January 2022 09:28 S
--- NOTE | 2022-01-27 06:06 | ECG_ITS ---
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 Measurements Intervals [place] Rate: 92 P: 57 KS: 177 QRS: -32 QRSD: 127 T: 164 QT: 383 QTc: 475 Interpretive Statements SINUS RHYTHM INFERIOR MYOCARDIAL INFARCTION , PROBABLY OLD [40+ ms Q WAVE AND/OR ST/T ABNORMALITY IN II/aVF] ANTEROSEPTAL MYOCARDIAL INFARCTION , PROBABLY RECENT [40+ ms Q WAVE IN V1-V4] ACUTE SC Compared to ECG 01/27/2022 01:59:58 Sinus tachycardia no longer present ST (T wave) deviation no longer present Myocardial infarct finding still present Electronically Signed On 01-27-2022 21:30:26 CDT by Ashley Herrera M.D. [id number]
[2022-01-27] MEDS: enoxaparin 80 mg/0.8 mL Syringe 70 MG SUBCUT ×2 (06:58→18:15)
[2022-01-27] MEDS: vancomycin 1,000 MG in sodium chloride 0.9% 250 ML 250 MG IV (07:01)
[2022-01-27] MEDS: dexamethasone 4 mg/mL INJ 6 MG IVP (07:02)
[2022-01-27] MEDS: piperacillin-tazobactam 3.375 GM in sodium chloride 0.9% (plus) 50 ML IV ×2 (07:02→18:16)
[2022-01-27 07:30] LABS: Basophils # 0.1 10^3/uL (0.0-0.1); Basophils % 0.3 %; Eosinophils % 0.2 %; Hematocrit 47.3 % (42.0-52.0); Hemoglobin 15.2 g/dL (11.7-16.6); Lymphocytes # 1.7 10^3/uL (0.8-4.8); Lymphocytes % 6.6 %; Mean Corpuscular HGB Conc 32.1 g/dL (30.0-36.0); Mean Corpuscular Hemoglobin 31.8 pg (28.0-34.0); Mean Platelet Volume 11.1 fL (7.4-10.4); Monocytes # 0.9 10^3/uL (0.2-0.9); Monocytes % 3.6 %; Neutrophils # 22.56 10^3/uL (1.8-7.7); Neutrophils % 87.4 %; Nucleated Red Blood Cells % 0.1 %; Red Blood Count 4.78 10^6/uL (4.1-5.3); Red Cell Distribution Width 13.2 % (12.1-15.1); White Blood Count 25.8 10^3/uL (4.0-10.0)
[2022-01-27 07:43] LABS: Partial Thromboplastin Time 40.3 SECONDS (23.9-36.7)
[2022-01-27 07:51] LABS: Alanine Aminotransferase 642 U/L (0-41); Albumin Level 3.5 g/dL (3.5-5.2); Alkaline Phosphatase 232 IU/L (40-130); Blood Urea Nitrogen 15 mg/dL (6-20); Calcium 7.4 mg/dL (8.5-10.5); Carbon Dioxide 13 mmol/L (22-29); Chloride 104 mmol/L (98-107); Globulin 2.4 g/dL (1.3-4.6); Glomerular Filtration Rate 39.7 mL/min (90-130); Glucose 83 mg/dL (65-115); Osmolality Calculated 302 mOsm/kg (285-295); Sodium 146 mmol/L (136-145); Total Bilirubin 0.7 mg/dL (0.15-1.2); Total Protein 5.9 g/dL (6.6-8.7)
[2022-01-27 07:52] LABS: Chol HDL Ratio 6.32 mg/dL (1.0-5.00); Cholesterol 196 mg/dL (0-200); HDL Cholesterol 31 mg/dL (60-100); LDL Cholesterol Calculated 113 mg/dL (50-129); LDL HDL Ratio 3.65 RATIO (0.00-3.22); Triglycerides 258 mg/dL (0-150); Uric Acid 8.6 mg/dL (3.4-7.0)
[2022-01-27 07:54] LABS: Creatinine Clr Calc Pharmacy 47.0377
[2022-01-27 07:56] LABS: Procalcitonin 3.72 ng/mL (0-0.5)
[2022-01-27 07:58] LABS: Anion Gap 31.8 (5-19); Lactate (Lactic Acid level) 13.6 mmol/L (0.5-2.2); Potassium 2.8 mmol/L (3.5-5.1)
[2022-01-27 07:59] LABS: Aspartate Amino Transferase 1214 U/L (0-40); Troponin 5 6HR 6250 ng/L (0-15); Troponin 5 6HR Delta 6117 ng/L (0-12)
[2022-01-27 08:04] LABS: Estmated Average Glucose 114; Hemoglobin A1C 5.6 % (4.0-6.0)
[2022-01-27 08:05] LABS: Slide Review Slide Review Perform
[2022-01-27 08:06] LABS: Platelet Count 200 10^3/cmm (130-400)
[2022-01-27] MEDS: sodium bicarbonate 8.4% syr 150 MEQ in dextrose 5% 1,000 ML 100 MEQ IV (08:41)
[2022-01-27] MEDS: potassium chloride premix 100 ML 25 MEQ IV (08:42)
[2022-01-27] MEDS: pantoprazole 40 mg SDV IVP (08:43)
[2022-01-27] MEDS: aspirin 300 mg Supp PR (08:43)
[2022-01-27] MEDS: dextrose 5 % 500 ML 100 ML IV (09:04)
[2022-01-27 09:05] LABS: Glucose Point of Care 65 mg/dL (70-110)
[2022-01-27] MEDS: fentaNYL 50 mcg/mL INJ 2mL 100 MCG IVP ×4 (09:27→16:50)
[2022-01-27 10:29] LABS: ABG PCO2 30.1 mmHg (35-45); Base Excess ABG -20.8 mmol/L (-2.0-2.0); Blood Gas Allen Test Pos; Blood Gas Operator Identificat CAK; Blood Gas Sample Site Radial, left; Blood Gas Sample Type Arterial; Blood Gas Tidal Volume 0.55; HCO3 ABG 8.5 mmol/L (22-26); Oxygen Device VENT
--- NOTE | 2022-01-27 10:43 | PC.CHAP ---
Pastoral Care Encounter/Spiritual Assessment Type of Contact [] Declined lay out former visit [] Patient/Family/Request visit [] Outpatient visit [] Follow-up visit [] Physician referral [] Code/Alert [x] Routine visit [] Staff referral [] Actively dying [x] Patient sleeping [] Family support [] [] Out of room [] Palliative care [] [] Receiving care in room [] Pre-surgical visit [] Trauma [] Long length of stay [x] ICU visit [x] Other: vent Relational/Emotional Strength [] Patient feels connected with others/family/visitors/staff [] Distress [] Loneliness/isolation [] Abandonment Spirituality of Patient [] Person of Kaylyn [] Attends Rastafarian of their Kaylyn [] Believes in Prayer [] Reads Bible or Holiness materials [] There are Spiritual issues to be addressed Mechanical Engineering Technician Interventions [x] Prayer [] Active listening [] Non-anxious presence [] Spiritual/emotional support [] Crisis/trauma care [] Spiritual counseling [] Bereavement support [] Provided bereavement packet [] Provided Bible/devotional materials [] Provided toy/stuffed animal, coloring book to patient or family member [] Provided Communion [] Anointing/[place] [] Salvation [x] Completed spiritual assessment [] Other: Impact on Illness or Injury [] Angry [] Fearful [] Anxious [] Often cries [] Exhaustion [] Unable to work [] Unable to attend episcopal [] Unable to walk/stand [] Unable to read [] Unable to drive [] Unable to eat/drink [] Unable to sleep [] Unable to be with family [] Patient intubated [] Other: Summary Time spent with patient
[2022-01-27 10:48] LABS: Glucose Point of Care 156 mg/dL (70-110)
[2022-01-27 11:07] LABS: Glucose Point of Care 197 mg/dL (70-110)
[2022-01-27 12:38] LABS: Glucose Point of Care 164 mg/dL (70-110)
--- NOTE | 2022-01-27 13:19 | PM.MISC ---
Miscellaneous Note Note: H&P reviewed Did speak with his friends at the bedside His significant other has notified his sister clinical services manager updated Patient is intubated, not on any sedatives, no meaningful neurological recovery seen Leukocytosis Hemodynamically stable on epinephrine drip Signs of metabolic and respiratory acidosis Severe reduction of PCO2 to 30, I would like her PCO2 to stay at least above 30 to avoid cerebral vasoconstriction Reduce respiratory rate from 22to 18 Bicarb drip started this morning Electrolytes replenished Decrease PEEP and FiO2 Patient is intubated No meaningful neurological recovery signs of sedation Currently on epi drip Elias cath draining dilute urine Abdomen soft No skin ulcers Subcutaneous emphysema crepitations all over his chest extending up to his neck Swollen tongue Unresponsive pupil Assessment plan After out of hospital cardiac arrest TTM was not initiated Will do CT head my concern is related to anoxic brain injury Is DNR/DNI, We will try to get in touch with his sister clinical services manager updated COVID-19 pneumonia Hypoxia related V. fib PEA 75 minutes of code Poor prognosis Continue bicarb drip for acidosis Decrease oxygen to 60% decrease PEEP to 5 Keep respiratory rate at 18 Left bundle branch block, STEMI unstable to be taken to the OR, family decided against aggressive intervention Sister's number is on the board in the room Shock liver Hold tube feeds Patient was throwing multiple PVCs I have started him on amiodarone drip Continue therapeutic dose of Lovenox, aspirin, broad-spectrum antibiotics
[2022-01-27 14:08] LABS: INR 1.48 (0.8-1.2)
[2022-01-27 14:09] LABS: Fibrinogen 153 mg/dL (174-498); Partial Thromboplastin Time 40.4 SECONDS (23.9-36.7)
[2022-01-27 14:28] LABS: D Dimer >= 20.00 ug/mIFEU (0-0.59)
[2022-01-27 16:36] LABS: Glucose Point of Care 277 mg/dL (70-110)
[2022-01-27 16:54] LABS: ABG PCO2 44.3 mmHg (35-45); Alveolar-Arterial Oxygen Gradi 73.1 mmHg (5-10); Base Excess ABG -13.4 mmol/L (-2.0-2.0); Blood Gas Allen Test Pos; Blood Gas Operator Identificat CAK; Blood Gas Sample Site Radial, left; Blood Gas Sample Type Arterial; Blood Gas Tidal Volume 0.52; Carboxyhemoglobin 0.3 %THgb (0.4-20.1); HCO3 ABG 15.2 mmol/L (22-26); HGB O2 Sat 95.6 % (95-100); Oxygen Device VENT; Oxygen Saturation ABG 96.8; PO2 ABG 97.7 mmHg (80.0-100.0); Potassium Level - ABG 3.7 mmol/L (3.5-5.0); Total Hemoglobin 13.4 g/dL (14-18)
[2022-01-27 17:06] LABS: ABG PH Result 7.14 (7.35-7.45)
[2022-01-27 17:09] LABS: ABG PH Result 7.06 (7.35-7.45)
[2022-01-27 17:25] LABS: Lactate (Lactic Acid level) 12.1 mmol/L (0.5-2.2)
[2022-01-27 17:27] LABS: Alanine Aminotransferase 505 U/L (0-41); Albumin Level 2.9 g/dL (3.5-5.2); Alkaline Phosphatase 67 IU/L (40-130); Blood Urea Nitrogen 23 mg/dL (6-20); Calcium 6.6 mg/dL (8.5-10.5); Carbon Dioxide 16 mmol/L (22-29); Chloride 100 mmol/L (98-107); Globulin 1.9 g/dL (1.3-4.6); Glomerular Filtration Rate 23.8 mL/min (90-130); Glucose 259 mg/dL (65-115); Osmolality Calculated 305 mOsm/kg (285-295); Sodium 141 mmol/L (136-145); Total Protein 4.8 g/dL (6.6-8.7)
[2022-01-27 17:32] LABS: Anion Gap 28.8 (5-19); Potassium 3.8 mmol/L (3.5-5.1)
[2022-01-27 17:38] LABS: Aspartate Amino Transferase 1191 U/L (0-40)
[2022-01-27] MEDS: EPINEPHrine 2.5 MG in sodium chloride 0.9% 250 ML 1319.41 MG IV (17:56)
[2022-01-27] MEDS: EPINEPHrine 2.5 MG in sodium chloride 0.9% 250 ML 4398.05 MG IV (18:08)
[2022-01-27] MEDS: insulin lispro 100 unit/1 mL SUBCUT (18:15)
[2022-01-27] MEDS: sodium chloride 0.9% 1,000 ML 999 ML IV (18:16)
--- NOTE | 2022-01-27 19:01 | P.DES_ITS ---
Discharge Providers DDS Date of Admission: 01/27/22 03:59 Date Summary Completed: 01/28/22 Attending Provider at Admission: Danisha Crawford MD Time of : :58 Attending Provider at Discharge: MD RICHARD eVra Diagnoses Hospital Diagnoses (1) Cardiac arrest: (2) Iatrogenic pneumothorax: (3) Acute respiratory failure: Reason for Visit Reason for Visit CPR Summary Date and Time of Time of : 06:58 Summary Summary: Patient had cardiac arrest outside the hospital, 75 minutes of ACLS as per the report, patient was intubated, off sedation he was not showing any signs of meaningful neurological recovery, TTM was not initiated by the admitting doctor, he was put on bicarb drip, he was requiring vasopressors. He was diagnosed with left bundle branch block NSTEMI he was too unstable to go to the Certified Nursing Attendant. Further details please see cardiology notes. When I saw him next day I adjusted his vent settings to correct respiratory and metabolic acidosis. He was on bicarb drip along epinephrine vasopressor. I added 1 L bolus and started levo however his blood pressure kept dropping despite 2 vasopressors. He was also diagnosed with COVID-19 pneumonia. Echo reviewed EF 20%. Additional Data Confirmation of as documented by pronouncing clinician: no pulse Family: at bedside and contacted Additional persons at bedside: nursing staff Attending/PCP notified?: I am attending Was code activated?: No Autopsy requested?: No Advance directives?: No Hospice patient?: Yes Discharge Plan Discharge Patient Disposition: Condition: Critical Prescriptions: No Action No Known Home Medications 0RF Patient Instructions: Opioid Safety DS Attestations Time Spent in /Discharge Care*: less than 30 min Quality - AMI: AMI present?: No Quality - Stroke: CVA present?: No Quality - VTE: VTE present?: No Coding Level of Care Code Acute Christian Science Practitioner for g Fwd Diagnoses Cardiac arrest I46.9 Iatrogenic pneumothorax J95.811 Acute respiratory failure J96.00
--- NOTE | 2022-01-27 20:35 | PC.NURSE ---
Pt's rhythm PEA at 1840 this evening, with no femoral pulse detected. Unable to obtain a blood pressure at that time. Pt progressed to asystole at 1858, and was pronounced by myself and second RN, Ajay Contreras. Dr. Bowles notified by SALAZAR Moss. Family notified by Dr. Bowles. Family members arrived shortly after 1910. Patiet's significant other, Deedee, is unable to notify patient's sister at this time, and wishes for us to keep patient in the morgue here until the family decides on burial wishes. [facility]TS notified of patients , case [id number]. Per Terrance De Leon, patient is not a candidate for donation due to Covid. Post mortem care performed. Pt extubated, OG removed, olivarez catheter removed, left femoral triple lumen removed, bilateral AC IVLs removed.
--- NOTE | 2022-01-27 21:09 | PC.NURSE ---
Left voicemail for pt's significant other requesting call back regarding home arrangements.
--- NOTE | 2022-01-27 21:41 | PC.NURSE ---
Addendum entered by Juhi Day RN 01/27/22 21:56: I, Juhi Day RN, witnessed the waste of fentanyl IV gtt and versed IV gtt with Jessica Calhoun RN Original Note: Fentanyl 239.458 mls and Versed 100 mls wasted with second RN witness.
--- NOTE | 2022-01-27 22:23 | PC.NURSE ---
Pt at 1857. Patient received post mortem care. No discharge needed
[2022-01-28 05:13] LABS: Bacillus cereus group Not Detected (NOT DETECT); Bacillus subtillis group Not Detected (NOT DETECT); Corynebacterium Not Detected (NOT DETECT); Cutibacterium acnes (P.acnes) Not Detected (NOT DETECT); Enterococcus Not Detected (NOT DETECT); Enterococcus faecalis Not Detected (NOT DETECT); Enterococcus faecium Not Detected (NOT DETECT); Lactobacillus species Not Detected (NOT DETECT); Listeria Not Detected (NOT DETECT); Listeria monocytogenes Not Detected (NOT DETECT); Micrococcus Not Detected (NOT DETECT); Pan Candida Not Detected (NOT DETECT); Pan Gram-Negative Not Detected (NOT DETECT); Staphylococcus epidermidis Not Detected (NOT DETECT); Staphylococcus lugdunensis Not Detected (NOT DETECT); Staphylococcus species Not Detected (NOT DETECT); Streptococcus agalactiae Not Detected (NOT DETECT); Streptococcus anginosus group Not Detected (NOT DETECT); Streptococcus pneumoniae Not Detected (NOT DETECT); Streptococcus pyogenes Not Detected (NOT DETECT); Streptococcus species Not Detected (NOT DETECT)
--- NOTE | 2022-01-28 20:34 | PC.NURSE ---
Verbal consent from Dao Lopez, Life Partner phone number [phone] to release body to [facility].
== END 2022-01-27 18:58 | disposition expired ==
LOC: ER 01-27 01:28 → ICU 01-27 05:39
PROVIDERS: Admitting Provider Hospitalist; Emergency Provider Emergency Medicine; Visit Provider Internal Medicine
DX: I21.3 ST elevation (STEMI) myocardial infarction of unspecified site (principal); I46.2 Cardiac arrest due to underlying cardiac condition; U07.1 COVID-19; J12.82 Pneumonia due to coronavirus disease 2019; J96.00 Acute respiratory failure, unspecified whether with hypoxia or hypercapnia; K72.01 Acute and subacute hepatic failure with coma; E87.4 Mixed disorder of acid-base balance; G93.1 Anoxic brain damage, not elsewhere classified; S27.0XXA Traumatic pneumothorax, initial encounter; Y84.8 Other medical procedures as the cause of abnormal reaction of the patient, or of later complication, without mention of misadventure at the time of the procedure; I44.7 Left bundle-branch block, unspecified; F17.210 Nicotine dependence, cigarettes, uncomplicated; D72.829 Elevated white blood cell count, unspecified; D69.6 Thrombocytopenia, unspecified; R79.1 Abnormal coagulation profile; R73.9 Hyperglycemia, unspecified; R78.0 Finding of alcohol in blood; Y90.6 Blood alcohol level of 120-199 mg/100 ml; Z66 Do not resuscitate
CPT/HCPCS: 31500; 36415; 36416; 36556; 36592; 36600; 51702; 71045; 80048; 80051; 80053; 80061; 80307; 81001; 82330; 82550; 82803; 82805; 82962; 83036; 83605; 83735; 83880; 84100; 84145; 84484; 84550; 85025; 85362; 85378; 85384; 85610; 85730; 87040; 87635; 93005; 93306; 94002; 94799; 96365; 96366; 96367; 96372; 96375; 99291; A4570; C1751; C9113; J0171; J0282; J0461; J1100; J1650; J1815; J1940; J2543; J3010; J3370; J3480; J7030; J7050; J7060